=== PATIENT | male | born 1940 | race Caucasian/White ===

== ENCOUNTER 2019-09-05 09:05 | Day surgery (SDC) | payer OTHER, MEDICARE ==
[2019-09-02 12:09] LABS: Basophils % 0.4 % (0-1.3); Hematocrit 37.7 % (39.6-49.0); Lymphocytes % 16.2 % (15.3-44.8); MPV 7.5 fL (7.6-11.3); RBC Red Blood Cell Count 4.23 M/uL (4.33-5.43)
[2019-09-02 12:15] LABS: Protime INR 1.14
[2019-09-02 12:27] LABS: Potassium 4.6 mmol/L (3.5-5.1)
--- NOTE | 2019-09-02 12:38 | RAD REPORT ---
EXAM DESCRIPTION: RAD - Chest Pa And Lat (2 Views) - 09/02/2019 12:28 pm CLINICAL HISTORY: pre op, pending stent placement COMPARISON: July 2012 TECHNIQUE: Frontal and lateral views of the chest were obtained. FINDINGS: The lungs are clear. Central right lung field is not well visualized due to technique. No abnormality suspected. No failure or volume overload. Heart size is normal and central vasculature is within normal limits. No pleural effusion or pneumo thorax seen. No acute bony finding noted. No aortic abnormality. IMPRESSION: No acute cardiopulmonary process.
--- OUTSIDE RECORDS SUMMARY | 2019-09-04 10:26 | XMS REPORT | Continuity of Care Document ---
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, systemic N euro arterial (disorder) Hyperlipidemia Active Problem 10/25/2018 Misc her (disorder) Neuro Hypothyroidism Active Problem 10/25/2018 Misc her (disorder) Neuro Medications Medication Details Route Status Patient Ordering Order Source Instructions Provider Date Levetiracetam = 1 tab, Active Mischer 500 MG Oral PO, BID, # 019 Neuro Tablet 180 tab, Refill(s) 1, Pharmacy: [facility] Allergies, Adverse Reactions, Alerts Substance Category Reaction Severity Reaction Status Date Comments S ource type Reported traMADol Assertion Drug Active Misch er allergy Neuro Immunizations No Data Provided for This Section Results No Data Provided for This Section Pathology Reports No Data Provided for This Section Diagnostic Reports No Data Provided for This Section Consultation Notes No Data Provided for This Section Discharge Summaries No Data Provided for This Section History and Physicals No Data Provided for This Section Vital Signs No Data Provided for This Section Encounters Location Location Encounter Encounter Reason Attending ADM [facility] Source Details Type Number For Provider Date Date Visit Outpatient [id number] LUZ 10/23 Active [facility] Outside [id number] 03/01 03/03 [facility] Medical /2018 [facility] [place] [facility] Outpatient [id number] LUZ 10/23 Active [facility] [place] Outpatient [id number] Luz 10/23 Active [facility] [place] [facility] Ambulatory [id number] Luz 10/23 10/23 [facility] Neurology Pre-Reg [place] /2018 [facility] [place] [facility] Ambulatory [id number] Luz 10/23 10/23 [facility] Neurology Pre-Reg [place] [place] Outpatient [id number] Luz 10/24 Active [facility] [place] Outpatient [id number] Luz 10/22 Active [facility] [place] Outpatient [id number] [place] 10/22 [facility] Procedures No Data Provided for This Section Assessment and Plan No Data Provided for This Section Plan of Care No Data Provided for This Section Social History Social History Date Source Social History [facility] Smoking Status Never smoker; Exposure to Tobacco Smoke None; Cigarette Smoking Last 365 Days No; Reg Smoking Cessation Counseling No entered on: 10/24/18 Family History No Data Provided for This Section Advance Directives No Data Provided for This Section Functional Status No Data Provided for This Section
--- OUTSIDE RECORDS SUMMARY | 2019-09-04 10:27 | XMS REPORT | Summary of Care ---
:1940 Author Organization [facility] - Health Address [address] [place] [address] Care Team Providers Name Role Phone Faustina Berrios Primary Care Provider Encounter Details Date Type Department Care Team Description 07/31/2019 Orders Only [facility] Doctor Unassigned, No 301 [facility] [place] [address] [address] [place] [address] Allergies Active Allergy Reactions Severity Noted Date Comments Penicillins Rash 05/28/2009 Sulfa (Sulfonamide Antibiotics) Rash 0 documented as of this encounter (statuses as of 08/18/2019) Medications Medication Sig Dispensed Refills Start Date End Date Status EFFEXOR XR 150 MG once daily 0 A ctive ORAL CP24 PLAVIX 75 MG ORAL TAB once daily 0 Active GLIPIZIDE 10 MG ORAL once daily 0 Active TR24 ZYRTEC 10 MG ORAL TAB once daily 0 Active SIMVASTATIN 40 MG once daily 0 A ctive ORAL TAB ALLOPURINOL 300 MG once daily 0 Active ORAL TAB NEXIUM 40 MG ORAL once daily 0 A ctive CPDR WARFARIN 6 MG ORAL as directed w/ 0 Active TAB warfarin 1mg WARFARIN 1 MG ORAL as directed w/ 0 Active TAB warfarin 6mg RAMIPRIL 5 MG ORAL once daily 0 Active TAB METFORMIN 850 MG ORAL 2 tabs in AM, 1 0 Active TAB tab in PM CARVEDILOL 3.125 MG 1 tab twice daily 0 Active ORAL TAB GABAPENTIN 300 MG 2 tabs in AM, 4 0 Active ORAL TAB tabs in PM FLUTICASONE NASAL once daily 0 A ctive NIACIN 500 MG ORAL 2 tabs in evening 0 Active TAB CENTRUM SILVER ORAL once daily 0 Active TRAMADOL 50 MG ORAL 2 tabs as needed 0 Active TAB for pain in feet LANTUS 100 UNIT/ML SC 27 units SQ at 0 Active SOLN bedtime DULoxetine (CYMBALTA) Take 1 Cap by 90 0 10/28/2009 Active 30 mg capsule mouth daily. mirtazapine 15 mg Take 15 mg by 0 Active tablet mouth at bedtime. oxybutynin XL 5 mg 24 Take 1 tablet by 90 tablet 3 04/24/2019 Active hr tabletIndications: mouth daily. BPH with obstruction/lower urinary tract symptoms tamsulosin 0.4 mg 24 Take 1 capsule by 90 capsule 3 04/28/2019 Active hr mouth at bedtime. capsuleIndications: BPH with obstruction/lower urinary tract symptoms documented as of this encounter (statuses as of 08/18/2019) Active Problems Problem Noted Date Diabetic polyneuropathy 07/30/2009 Overview: ICD10 Diagnosis Term Manual Winder Utility Type II or unspecified type diabetes mellitus with giovanni rological 07/26/2009 manifestations, not stated as uncontrolled(250.60) documented as of this encounter (statuses as of 08/18/2019) Social History Tobacco Use Types Packs/Day Years Used Date Never Smoker Alcohol Use Drinks/Week oz/Week Comments No Sex Assigned at Date Recorded Not on file Job Start Date Occupation Industry Not on file Not on file Not on file Travel History Travel Start Travel End No recent travel history available. documented as of this encounter Last Filed Vital Signs Not on filedocumented in this encounter Plan of Treatment Date Type Specialty Care Team Description 08/28/2019 Office Visit Pulmonary Disease Adolfo Harris DO [address] [place] [address] 09/08/2019 Office Visit Urology Eliezer Peres MD [address] [place] [address]. [place], [place] [phone] Health Maintenance Due Date Last Done Comments HgA1C 1941 CREATININE (SERUM) 05/18/1951 EYE EXAM 05/18/1951 LDL-C 05/18/1951 URINE MICROALBUMIN 05/18/1951 DTaP,Tdap,and Td Vaccines (1 - Tdap) 1952 FOOT EXAM 05/18/1959 Zoster Recombinant Vaccine (SHINGRIX) 05/18/1991 (1 of 2) Medicare Wellness Visit 2006 PNEUMOCOCCAL VACCINES 65+ (1 of 2 - 2006 PCV13) Depression Screening 04/21/2020 04/21/2019 INFLUENZA VACCINE Completed 01/27/2019, 12/14/2016, 01/11/2016 documented as of this encounter Procedures Procedure Name Priority Date/Time Associated Diagnosis Comme nts REFERRAL- Routine 07/31/2019 12:01 AM CDT REQUEST/RESPONSE documented in this encounter Results Not on filedocumented in this encounter Insurance Payer Benefit Plan / Subscriber ID Effective Phone Address T ype Group Dates MEDICARE MEDICARE PART xxxxxxxxxxx 2006-Pre [phone] [address] [employer] edicare A & B sent [phone] RADHA LINCOLN [id number] [facility] [id number] 2018-Pre [address] [facility] sent [id number] Supplement MEDICARE [place] SUPPLEMENT RADHA MALLORY [id number] documented as of this encounter
--- OUTSIDE RECORDS SUMMARY | 2019-09-04 10:27 | XMS REPORT | Summary of Care ---
:1940 Author Organization [facility] Address [address] [place] [address] Care Team Providers Name Role Phone Faustina Berrios Primary Care Provider [phone] Reason for Visit Reason Comments Lower Urinary Tract Symptoms Encounter Details Date Type Department Care Team Description 05/19/2019 Telemedicine Visit [facility] Yvonne Peres MD BPH with Urology- [address] obstruction/lower [address] [place] [address] [place], [place] symptoms (Primary [phone] Dx) [place], [place] [phone] [address] [phone] Allergies Active Allergy Reactions Severity Noted Date Comments Penicillins Rash 05/28/2009 Sulfa (Sulfonamide Antibiotics) Rash 0 documented as of this encounter (statuses as of 07/07/2019) Medications Medication Sig Dispensed Refills Start Date [...] as of this encounter (statuses as of 07/07/2019) Active Problems Problem Noted Date Diabetic polyneuropathy 07/30/2009 Overview: ICD10 Diagnosis Term Soil Sampler Utility Type II or unspecified type diabetes mellitus with giovanni rological 07/26/2009 manifestations, not stated as uncontrolled(250.60) documented as of this encounter (statuses as of 07/07/2019) Social History Tobacco Use Types Packs/Day Years [...] Signs Not on filedocumented in this encounter Progress Notes Eliezer Peres MD - 05/19/2019 1:00 PM CDT TELEHEALTH NOTE Verbal consent obtained from Patient: Desmond Jean-Baptiste for telehealth services provided below. Communication with patient was conducted via Telephone. Location of Patient: Home Location of Provider: Clinic Date of Service: 05/15/2019 Referred by: HEBER Landin Chief Complaint: I was asked to give my opinion regarding Desmond Jean-Baptiste is a 79 year old male who presents with LUTS History of Present Illness 05/19/2019: Desmond Jean-Baptiste is a 79 year old male on Flomax and Ditropan with persistent nocturia 6 , withno day time frequency. Patient and reported maximizing life style changes and reducing oral fluid intake with no improvement. No recent UTI or hematuria. He reported no dry cough, headache, SOB or fever. PSAs reviewed: No results found for: PSA 04/21/2019: Desmond Jean-Baptiste 78 year old male for 6 month follow up of frequency and nocturia. Here with . He is taking Flomax symptoms have improved during the day, but gets up 4-5 times a night. He hasdecreased caffeine intake, and denies constipation. . thinks he gets up frequently to avoid wetting the bed. On Tamsulosin and Ditropan PVR : 5 ML Histories Past Medical History: Diagnosis Date CAD (coronary artery disease) 2004 s/p stent placement X4 Depression Heart failure 2004 Stroke 2004 Type II or unspecified type diabetes mellitus without mention of complication, uncontrolled History reviewed. No pertinent surgical history. Family History Problem Relation Age of Onset Hypertension Father Heart Mother Heart Brother Hypertension Daughter Social History Socioeconomic History Marital status: Spouse name: Not on file Number of children: Not on file Years of education: Not on file Highest education level: Not on file Occupational History Occupation: Retired Social Needs Financial resource strain: Not on file Food insecurity: Worry: Not on file Inability: Not on file Transportation needs: Medical: Not on file Non-medical: Not on file Tobacco Use Smoking status: Never Smoker Substance and Sexual Activity Alcohol use: No Drug use: No Sexual activity: Not on file Lifestyle Physical activity: Days per week: Not on file Minutes per session: Not on file Stress: Not on file Relationships Social connections: Talks on phone: Not on file Gets together: Not on file Attends islam service: Not on file Active member of club or organization: Not on file Attends meetings of clubs or organizations: Not on file Relationship status: Not on file Intimate partner violence: Fear of current or ex partner: Not on file Emotionally abused: Not on file Physically abused: Not on file Forced sexual activity: Not on file Other Topics Concern Service Not Asked Blood Transfusions Not Asked Caffeine Concern Not Asked Occupational Exposure Not Asked Hobby Hazards Not Asked Sleep Concern Yes Comment: due to feet pain Stress Concern Yes Weight Concern Not Asked Special Diet Not Asked Back Care Not Asked Exercise Not Asked Bike Helmet Not Asked Seat Belt Not Asked Self-Exams Not Asked Social History Narrative Not on file Allergies Allergies Allergen Reactions Pcn [Penicillins] Rash Sulfa (Sulfonamide Antibiotics) Rash Review of Systems Constitutional: negative Eyes: negative Ears, nose, mouth, throat: negative Cardiovascular: negative Respiratory: negative Gastrointestinal: negative Genitourinary: (+) per HPI Musculoskeletal: negative Integumentary: negative Neurological: negative Psychiatric: negative Endocrine: negative Hematologic/Lymphatic: negative Allergic/Immunologic: negative, allergies listed above Physical Examination There were no vitals taken for this visit. Constitutional: Alert and in no distress Resp: Breathing comfortably Neuro: Answers questions appropriately Psych: Affect normal Laboratory Per HPI Radiology No final results containing an impression from the past 30 days were found. Assessment Desmond Jean-Baptiste is a 79 year old male with: 1. BPH/LUTS 2. Nocturia : probably 2/2 to inability of kidney to concentrate urine with aging, increased renal blood flow in recumbent position and an element of voiding dysfunction. No further medical management at this point, as DDAVP logan result in serious electrolyte imbalances and requires close follow up , which is not the patient best interest at the time of COVID-19 outbreak. Patient and voiced understanding Plan - stop Ditropan - C/n flomax - TeleHealth visit 6 months After visit summary (AVS ) documentation will be available through [employer] for this encounter. A total of 15 minutes spent on the telephone on the telephone with the patient. Eliezer Peres MD documented in this encounter Plan of Treatment Date Type Specialty Care Team Description 08/25/2019 Telemedicine Visit Urology Yvonne Peres MD [address] [place] [address]. [place], [place] [phone] Health Maintenance Due Date Last Done Comments HgA1C 1941 CREATININE (SERUM) 05/18/1951 EYE EXAM 05/18/1951 LDL-C 05/18/1951 URINE MICROALBUMIN 05/18/1951 DTaP,Tdap,and Td Vaccines (1 - Tdap) 1952 FOOT EXAM 05/18/1959 Zoster Recombinant Vaccine (SHINGRIX) 05/18/1991 (1 of 2) Medicare Wellness Visit 2006 PNEUMOCOCCAL VACCINES 65+ (1 of 2 - 2006 PCV13) INFLUENZA VACCINE Completed 01/27/2019, 12/14/2016, 01/11/2016 documented as of this encounter Results Not on filedocumented in this encounter Visit Diagnoses Diagnosis BPH with obstruction/lower urinary tract symptoms - Primary Hypertrophy of prostate with urinary obs truction and other lower urinary tract symptoms (LUTS) documented in this encounter Insurance Payer Benefit Plan / Subscriber ID Effective Phone Address T ype Group Dates MEDICARE MEDICARE PART xxxxxxxxxxx 2006-Pre [phone] [address] [facility] [facility] [facility] [phone] RADHA LINCOLN [address] [facility] [id number] 2018-Pre [address] [facility] sent [id number] Supplement MEDICARE [place] SUPPLEMENT RADHA MALLORY [id number] Guarantor Name Account Type Relation to Date of Phone Bill ing Patient Address Desmond Jean-Baptiste Personal/Family Self 1940 [id number] (Home) [place] MÉNDEZ [phone] (Work) documented as of this encounter
--- OUTSIDE RECORDS SUMMARY | 2019-09-04 10:27 | XMS REPORT | Summary of Care ---
:1940 Author Organization [facility] - Health Address [address] [place] [address] Care Team Providers Name Role Phone Faustina Berrios Primary Care Provider [phone] Encounter Details Date Type Department Care Team Description 08/28/2019 Orders Only [facility] Doctor Unassigned, No 301 [facility] [place] [address] [address] [place] [address] Allergies Active Allergy Reactions Severity Noted Date Comments Penicillins Rash 05/28/2009 Sulfa (Sulfonamide Antibiotics) Rash 0 documented as of this encounter (statuses as of 08/28/2019) Medications Medication Sig Dispensed Refills Start Date [...] as of this encounter (statuses as of 08/28/2019) Active Problems Problem Noted Date Diabetic polyneuropathy 07/30/2009 Overview: ICD10 Diagnosis Term Safety Teacher Utility Type II or unspecified type diabetes mellitus with giovanni rological 07/26/2009 manifestations, not stated as uncontrolled(250.60) documented as of this encounter (statuses as of 08/28/2019) Social History Tobacco Use Types Packs/Day Years [...] Visit Pulmonary Disease Adolfo Harris DO [address] [place] [address] 09/08/2019 Office Visit Urology Eliezer Peres MD [address] [place] [address]. [place], [place] [phone] Health Maintenance Due Date Last Done Comments HgA1C 1942 CREATININE (SERUM) 05/18/1951 EYE EXAM 05/18/1951 LDL-C 05/18/1951 URINE MICROALBUMIN 05/18/1951 DTaP,Tdap,and Td Vaccines (1 - Tdap) 1952 FOOT EXAM 05/18/1959 Zoster Recombinant Vaccine (SHINGRIX) 05/18/1991 (1 of 2) Medicare Wellness Visit 2006 PNEUMOCOCCAL VACCINES 65+ (1 of 2 - 2006 PCV13) INFLUENZA VACCINE (#1) 2019 01/27/2019, 12/14/2016, 01/11/2016 Depression Screening 04/21/2020 04/21/2019 documented as of this encounter Procedures Procedure Name Priority Date/Time Associated Diagnosis Comme nts CONSENT/REFUSAL FOR Routine 08/28/2019 12:44 PM CDT DIAGNOSIS AND TREATMENT documented in this encounter Results Not on filedocumented in this encounter Insurance Payer Benefit Plan / Subscriber ID Effective Phone Address T ype Group Dates MEDICARE MEDICARE PART xxxxxxxxxxx 2006-Pre [phone] [address] edicare A & B sent [id number] RADHA LINCOLN [id number] [facility] [id number] 2018-Pre [address] [facility] sent [id number] Supplement MEDICARE [place] SUPPLEMENT RADHA MALLORY [id number] documented as of this encounter
--- OUTSIDE RECORDS SUMMARY | 2019-09-04 10:27 | XMS REPORT | Continuity of Care Document ---
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) Active Problem 10/25/2018 [facility] Diabetes Problem Active 2018-10-25 Mem oria mellitus 22:25:41 l type 2 Diabetes Andriy n (disorder) mellitus type 2 (disorder) Active Problem 10/25/2018 [facility] Hypertensi Problem Active 2018-10-25 M emoria ve 22:25:41 l disorder, [place] systemic Hypertensi arterial ve (disorder) disorder, systemic arterial (disorder) Active Problem 10/25/2018 [facility] Hyperlipid Problem Active 2018-10-25 M emoria emia 22:25:41 l (disorder) Andriy n Hyperlipid emia (disorder) Active Problem 10/25/2018 [facility] Hypothyroi Problem Active 2018-10-25 M emoria dism 22:25:41 l (disorder) Andriy n Hypothyroi dism (disorder) Active Problem 10/25/2018 [facility] Allergies, Adverse Reactions, Alerts Allergy Allergy Status Severity Reaction(s) Onset Inactive Treating Comm ents Source Name Type Date Date Clinician traMADol traMADol Active Kyle Owen Social History Smoking Status Start Date Stop Date Source Social History Lesa Owen Medications Ordered Filled Start Stop Current Ordering Indication Dosage Frequency Signature Comments Components Source Medication Medication Date Date Medication? Clinician (SIG) Name Name Levetiracet 2019- Yes = 1 tab, Me traore am 500 MG 2-17 PO, BID, # l Oral Tablet 20:02: 180 tab, Nicholas rmann 58 Refill(s) 1, Pharmacy: [facility] Procedures This patient has no known procedures. Encounters Start End Encounter Admission Attending Care Care Encounter Source Date/Time Date/Time Type Type Clinicians Facility Department ID 2019-08-28 2019-08-28 Office SEKOU Harris [id number] 12:50:55 13:10:55 Visit Adolfo Bolivar [id number] Hollie [id number] [facility] [id number] nal 085 [facility] 2018-10-23 2018-10-23 Outpatient EVELYNE Keys GOKULSCHER [id number] 16:00:00 16:00:00 Jarad 02 [facility] 2018-10-23 2018-10-23 Outpatient ANKITA KeysSCHFAUZIA GOKULSCHER [id number] 14:00:00 14:00:00 Jarad Alli 2018-03-01 2018-03-02 [id number] 13:31:00 23:59:59 01 Results This patient has no known results.
--- OUTSIDE RECORDS SUMMARY | 2019-09-04 10:28 | XMS REPORT | Summary of Care ---
:1940 Author Organization [facility] Address [address] [place] [address] Care Team Providers Name Role Phone Faustina Berrios Primary Care Provider Reason for Visit Reason Comments New Patient DYSPNEA (Routine) Status Reason Specialty Diagnoses / Referred By Referred To Procedures Contact Contact Closed Pulmonary Disease Diagnoses Hypoxemia Agustina Procedures CONSULT/REFERRAL PULMONARY , Faustina [facility] [place] [address] Encounter Details Date Type Department Care Team Description 08/28/2019 Office Visit [facility] ADC Adolfo Harris DO Dyspnea on exertion Pulmonary Clinic 2660 [facility] (Primary Dx) [address] [place] [address] [phone] Allergies Active Allergy Reactions Severity Noted Date Comments Penicillins Rash 05/28/2009 Sulfa (Sulfonamide Antibiotics) Rash 0 documented as of this encounter (statuses as of 08/28/2019) Medications Medication Sig Dispensed Refills Start Date End Date Status EFFEXOR XR 150 MG once daily 0 A ctive ORAL CP24 GLIPIZIDE 10 MG once daily 0 Act radha ORAL TR24 ZYRTEC 10 MG ORAL once daily 0 A ctive TAB SIMVASTATIN 40 MG once daily 0 A ctive ORAL TAB ALLOPURINOL 300 MG once daily 0 Active ORAL TAB NEXIUM 40 MG ORAL once daily 0 A ctive CPDR RAMIPRIL 5 MG ORAL once daily 0 Active TAB metFORMIN 1,000 mg Take 1,000 mg 0 Active tablet by mouth. CARVEDILOL 3.125 MG 1 tab twice 0 Active ORAL TAB daily GABAPENTIN 300 MG 2 tabs in AM, 0 Active ORAL TAB 4 tabs in PM FLUTICASONE NASAL once daily 0 A ctive NIACIN 500 MG ORAL 2 tabs in 0 A ctive TAB evening CENTRUM SILVER ORAL once daily 0 Active TRAMADOL 50 MG ORAL 2 tabs as 0 Active TAB needed for pain in feet LANTUS 100 UNIT/ML 27 units SQ at 0 Active SC SOLN bedtime DULoxetine Take 1 Cap by 90 0 10/28/2009 Acti ve (CYMBALTA) 30 mg mouth daily. capsule mirtazapine 15 mg Take 15 mg by 0 Active tablet mouth at bedtime. oxybutynin XL 5 mg Take 1 tablet 90 tablet 3 04/24/2019 Active 24 hr by mouth tabletIndications: daily. BPH with obstruction/lower urinary tract symptoms tamsulosin 0.4 mg Take 1 capsule 90 capsule 3 04/28/2019 Active 24 hr by mouth at capsuleIndications: bedtime. BPH with obstruction/lower urinary tract symptoms levothyroxine 25 Take 25 mcg by 0 Active mcg tablet mouth every morning. pramipexole 1.5 mg 2 tablets. 0 09/23/2013 Active tablet venlafaxine XR 150 0 06/22/2019 Active mg 24 hr capsule XARELTO 20 mg 0 08/02/2019 Activ e tablet PLAVIX 75 MG ORAL once daily 0 D iscontinued TAB 0 WARFARIN 6 MG ORAL as directed w/ 0 Discontinued TAB warfarin 1mg 0 WARFARIN 1 MG ORAL as directed w/ 0 Discontinued TAB warfarin 6mg 0 documented as of this encounter (statuses as of 08/28/2019) Active Problems Problem Noted Date Diabetic polyneuropathy 07/30/2009 Overview: ICD10 Diagnosis Term Cigar Patcher Utility Type II or unspecified type diabetes mellitus with giovanni rological 07/26/2009 manifestations, not stated as uncontrolled(250.60) documented as of this encounter (statuses as of 08/28/2019) Social History Tobacco Use Types Packs/Day Years Used Date Never Smoker Smokeless Tobacco: Never Used Alcohol Use Drinks/Week oz/Week Comments No Sex Assigned at Date Recorded Not on file Job Start Date Occupation Industry Not on file Not on file Not on file Travel History Travel Start Travel End No recent travel history available. COVID-19 Exposure Response Date Recorded In the last month, have you been in contact with No / Unsure 08/28/2019 1:15 PM CDT someone who was confirmed or suspected to have Coronavirus / COVID-19? documented as of this encounter Last Filed Vital Signs Vital Sign Reading Time Taken Comments Blood Pressure 128/71 08/28/2019 1:16 PM CDT Pulse 70 08/28/2019 1:16 PM CDT Temperature - - Respiratory Rate 18 08/28/2019 1:16 PM CDT Oxygen Saturation 98% 08/28/2019 1:16 PM CDT Inhaled Oxygen Concentration - - Weight 103.4 kg (228 lb) 08/28/2019 1:16 PM CDT Height 177.8 cm (5' 10") 08/28/2019 1:16 PM CDT Body Mass Index 32.71 08/28/2019 1:16 PM CDT documented in this encounter Progress Notes Adolfo Harris, - 08/28/2019 3:40 PM CDT [facility] Inter[facility] Pul[facility] Chief Complaint: Shortness of breath History of Present Illness: Desmond Jean-Baptiste is a 79 year old male here for shortness of breath with exertion, can walk across the room and get short of breath. No associated chest pain. Does have leg swelling. No non-exertional dyspnea. Symptoms improved with rest. Of note, recently had positive stress test and cardiac catheterization is planned. Past Medical History: has a past medical history of CAD (coronary artery disease) (2004), Depression, Heart failure (2004), Stroke (2004), and Type II or unspecified type diabetes mellitus without mention of complication, uncontrolled. Past Surgical History: has no past surgical history on file. Family History: family history includes Heart in his brother and mother; Hypertension in his daughter and father. Social History: reports that he has never smoked. He has never used smokeless tobacco. He reports that he does not drink alcohol or use drugs. Review of Systems: Review of Systems Constitutional: Negative. HENT: Negative. Eyes: Negative. Respiratory: Positive for shortness of breath. Cardiovascular: Positive for leg swelling. Gastrointestinal: Negative. Genitourinary: Negative. Musculoskeletal: Negative. Skin: Negative. Neurological: Negative. Psychiatric/Behavioral: Negative. Objective: BP 128/71 (BP Location: Left arm, Patient Position: Sitting, BP CUFF SIZE: Adult Large) | Pulse 70| Resp 18 | Ht 5' 10" (1.778 m) | Wt 228 lb (103.4 kg) | SpO2 98% | BMI 32.71 kg/m Physical Exam Constitutional: He is oriented to person, place, and time. He appears well- developed and well-nourished. HENT: Head: Normocephalic and atraumatic. Eyes: Conjunctivae and EOM are normal. Neck: Normal range of motion. Neck supple. Cardiovascular: Normal rate and regular rhythm. Pulmonary/Chest: Effort normal and breath sounds normal. Abdominal: Soft. Bowel sounds are normal. Musculoskeletal: Normal range of motion. He exhibits edema. Neurological: He is alert and oriented to person, place, and time. Skin: Skin is warm and dry. Psychiatric: He has a normal mood and affect. His behavior is normal. Judgment and thought content normal. Labs/Studies: Assessment: ICD-10-CM ICD-9-CM 1. Dyspnea on exertion R06.09 786.09 No strong risk factors to suggest pulmonary cause - does have hx of cigar smoking one per day Likely cardiac in nature especially given positive stress test, as well as signs of volume overload Plan: Would re-evaluate patient after catheterization and stent placement and optimization of volume status If symptoms persist will consider pulmonary function testing Follow up 6 weeks documented in this encounter Plan of Treatment Date Type Specialty Care Team Description 09/08/2019 Office Visit Urology Eliezer Peres MD [address] [place], [place] [address]. [place], [place] [phone] Health Maintenance Due Date [...] 04/21/2020 04/21/2019 documented as of this encounter Results Not on filedocumented in this encounter Visit Diagnoses Diagnosis Dyspnea on exertion - Primary Other dyspnea and respiratory abnormalit y documented in this encounter Insurance Payer Benefit Plan / Subscriber ID Effective Phone Address T ype Group Dates MEDICARE MEDICARE PART xxxxxxxxxxx 2006-Pre [phone] [address] edicare A & B sent [id number] RADHA LINCOLN [phone] [facility] [id number] 2018-Pre [address] [facility] sent [id number] Supplement MEDICARE [place] SUPPLEMENT RADHA MALLORY [id number] Guarantor Name Account Type Relation to Date of Phone Bill ing Patient Address Desmond Jean-Baptiste Personal/Family Self 1940 [id number] (Home) [place] [phone] (Work) documented as of this encounter
--- OUTSIDE RECORDS SUMMARY | 2019-09-04 10:28 | XMS REPORT | Summary of Care ---
:1940 Author Organization [facility] Address [address] [place] [address] Care Team Providers Name Role Phone Faustina Berrios Primary Care Provider Reason for Visit Reason Comments New Patient DYSPNEA (Routine) Status Reason Specialty Diagnoses / Referred By Referred To Procedures Contact Contact Closed Pulmonary Disease Diagnoses Hypoxemia Agustina Procedures CONSULT/REFERRAL PULMONARY , Faustina [facility] [place] [address] Encounter Details Date Type Department Care Team Description 08/28/2019 Office Visit [facility] ADC Adolfo Harris DO Dyspnea on exertion Pulmonary Clinic 2660 [facility] (Primary Dx) [address] [place] [address] [phone] Allergies Active Allergy Reactions Severity Noted Date [...] Diabetic polyneuropathy 07/30/2009 Overview: ICD10 Diagnosis Term Broadcasting Equipment Mechanic Utility Type II or unspecified type diabetes [...] Adolfo Harris, - 08/28/2019 3:40 PM CDT [facility] Interventional Pulmonology Clinic Chief Complaint: Shortness of [...] 09/08/2019 Office Visit Urology Eliezer Peres MD [address] [place], [place] [address]d. [place], [place] [phone] Health Maintenance Due Date [...] M edicare A & B sent [id number] RADHA LINCOLN [address] [facility] [id number] 2018-Pre [address] [facility] sent [id number] Supplement MEDICARE [place] SUPPLEMENT RADHA MALLORY [id number] Guarantor Name Account Type Relation to Date of Phone Bill ing Patient Address Desmond Jean-Baptiste Personal/Family Self 1940 [id number] (Home) [place] [phone] (Work) documented as of this encounter
[~2019-09-05 09:05] MED LIST: NA CHLORIDE 0.9% 0 ML ONE
--- OUTSIDE RECORDS SUMMARY | 2019-09-05 09:07 | XMS REPORT | Continuity of Care Document ---
:1940 Author Organization [facility] Care Team Providers Name Role Phone [facility] Unavailable Un available Problems Problem Status Onset [...] Neuro Tablet 180 tab, Refill(s) 1, Pharmacy: [facility] Allergies, Adverse Reactions, Alerts Substance [...] Location Location Encounter Encounter Reason Attending ADM [facility] Source Details Type Number For Provider Date Date Visit Outpatient [id number] LUZ 10/23 Active [facility] [place] [facility] Outside [id number] 03/01 03/03 [facility] Medical /2018 [facility] [place] [facility] Outpatient [id number] LUZ 10/23 Active [facility] [place] Outpatient [id number] Luz 10/23 Active [facility] [place] [facility]NA Ambulatory [id number] Luz 10/23 10/23 [facility] Pre-Reg [place] /2018 Neuro [place] MNA Ambulatory [id number] Luz 10/23 10/23 [facility] Pre-Reg [place] [facility] [place] Outpatient [id number] Luz 10/24 Active [facility] [place] Outpatient [id number] Luz 10/22 Active [facility] [place] Outpatient [id number] [place] 10/22 [facility] [place] Procedures No Data Provided for This Section Assessment and Plan No Data Provided for This Section Plan of Care No Data Provided for This Section Social History Social History Date Source Social History TypeResponse 10/24/2018 [facility] Smoking Status Never smoker; Exposure to Tobacco Smoke None; Cigarette Smoking Last 365 Days No; Reg Smoking Cessation Counseling No entered on: 10/24/18 Family History No Data Provided for This Section Advance Directives No Data Provided for This Section Functional Status No Data Provided for This Section
--- OUTSIDE RECORDS SUMMARY | 2019-09-05 09:08 | XMS REPORT | Continuity of Care Document ---
:[address] [facility] t Address [address] [place] [address] Care Team Providers Name Role Phone Harris Attending Clinician Alli Keys Attending Clinician Problems Condition Condition Condition Status [...] 2018-10-25 M emoria ve 22:25:41 l disorder, [place] systemic Hypertensi arterial ve (disorder) disorder, systemic [...] Start Date Stop Date Source Social History [facility] [place] Medications Ordered Filled Start Stop Current Ordering Indication Dosage Frequency Signature Comments Components Source Medication Medication Date Date Medication? Clinician (SIG) Name Name Levetiracet 2018- Yes = 1 tab, Me traore am 500 MG 2-17 PO, BID, # l Oral Tablet 20:02: 180 tab, Nicholas peoples 58 Refill(s) 1, Pharmacy: [facility] Procedures This patient has no known procedures. Encounters Start End Encounter Admission Attending Care Care Encounter Source Date/Time Date/Time Type Type Clinicians Facility Department ID 2019-08-28 2019-08-28 Office SEKOU Harris [id number] 12:50:55 13:10:55 Visit Adolfo Bolivar [id number] Hollie [id number] [place] [id number] [facility] 2018-10-23 2018-10-23 Outpatient EVELYNE Keys GOKULSCHFAUZIA [id number] 16:00:00 16:00:00 Jarad 02 [facility] 2018-10-23 2018-10-23 Outpatient ANKITA KeysSCHFAUZIA MISCHER [id number] 14:00:00 14:00:00 Jarad Alli 2018-03-01 2018-03-02 [id number] 13:31:00 23:59:59 01 Results This patient has no known results.
[2019-09-05] MEDS ORDERED: NICARDIPINE HCL 25 MG/10 ML IV ONE (09:25)
[2019-09-05] MEDS ORDERED: LIDOCAINE 1% 20 ML MDV ONE (09:25)
[2019-09-05] MEDS ORDERED: NITROGLYCERIN 100 MCG/ML SYR (for cath lab use only) IV ONE (09:25)
[2019-09-05] MEDS ORDERED: HEPA 1000U/500MLS 2,000 UNIT/1,000 ML BAG IV ONE (09:25)
[2019-09-05] MEDS ORDERED: HEPARIN 5000 UNIT/ML 1 ML VIAL ONE (09:26)
[2019-09-05] MEDS ORDERED: ATROPINE SULF 1 MG/10 ML SYR IV ONE (09:26)
[2019-09-05] MEDS ORDERED: NA CHLORIDE 0.9% 500 ML ONE (09:46)
[2019-09-05] MEDS ORDERED: MIDAZOLAM HCL 2 MG/2 ML INJ ONE (10:03)
[2019-09-05] MEDS ORDERED: FENTANYL CITR 100 MCG/2 ML ONE (10:04)
[2019-09-05] MEDS ORDERED: HEPARIN 10,000 UNIT/10 ML VIAL IV ONE (10:53)
[2019-09-05] MEDS ORDERED: CLOPIDOGREL 75 MG TABLET ONE (11:10)
[2019-09-05] MEDS ORDERED: HEPA 1000U/500MLS 1,000 UNIT/500 ML BAG IV ONE (11:15)
[2019-09-05] MEDS ORDERED: ASPIRIN 325 MG TAB ONE (11:56)
[2019-09-05] MEDS ORDERED: MAGNES/ALUMIN/SIMET 30ML UCUP PO ONE (12:28)
[2019-09-05] MEDS ORDERED: MAGNES/ALUMIN/SIMET 30ML UCUP ONE (12:54)
[2019-09-05] MEDS ORDERED: NA CHLORIDE 0.9% 1,000 ML IV SCH (13:00)
[2019-09-05 14:16] VITALS: O2SAT 99
[2019-09-05] MEDS ORDERED: D50W 25 GM/50 ML SYRINGE/VIAL IV PRN (15:10)
[2019-09-05] MEDS ORDERED: GLUCAGON 1 MG/VIAL IM PRN (15:10)
[2019-09-05 15:15] VITALS: BMI 32.3
[2019-09-05] MEDS: INSULIN -REGULAR HUMAN 50 UNIT/0.5 ML ML SQ SCH ×2 (16:39→21:00)
--- NOTE | 2019-09-05 16:44 | P.CNS ---
Date of Consult: 09/05/19 Reason for Consult: Medical management Requesting Physician: Isaias Day Chief Complaint: Status post cardiac catheterization History of Present Illness: 79-year-old male was taken in for outpatient heart catheterization c andidate requiring stent placement. For this reason cardiology wishes to observe patient overnight, hospitalist team was consulted for medical management. - Past Medical/Surgical History Diabetic: Yes -: Hypothyroidism -: Coronary Artery Disease -: Prostate Problem -: Paroxysmal AFIB -: Gout -: Diabetes mellitus type 2 -: Parkinson's -: Cataract Sx -: Right knee surgery Psychosocial/ Personal History: Patient lives with his - Family History Mother Medical History: Heart disease Father Medical History: Heart disease - Social History Smoking Status: Former smoker Alcohol use: No CD- Drugs: No Caffeine use: Yes Place of Residence: Home <Miugel Mendoza - Last Filed: 09/05/19 16:37> Home medications list reviewed: Yes <Chester Sharma - Last Filed: 09/05/19 18:33> Allergies Penicillins Allergy (Verified 09/02/19 11:34) Hives/Rash Sulfa (Sulfonamide Antibiotics) Allergy (Verified 09/02/19 13:29) Hives/Rash diphenhydramine [From Benadryl] Adverse Reaction (Verified 09/02/19 13:29) agitation Home Medications: Allopurinol 100 mg PO DAILY 09/05/19 Carbidopa/Levodopa [Rytary ER 61.25 mg-245 mg Cap] 1 each PO QID 09/05/19 Cholecalciferol (Vitamin D3) [Vitamin D3] 125 mcg PO DAILY 09/05/19 Esomeprazole Mag Trihydrate [Nexium] 40 mg PO DAILY 09/05/19 Gabapentin 3 tab PO BID 09/05/19 Insulin Glargine Human [Lantus] 32 unit SQ DAILY 6PM 09/05/19 Levothyroxine Sodium 25 mcg PO [id number] 09/05/19 Lipase/Protease/Amylase [Zenpep Dr 40,000 Unit Capsule] 2 cap PO QID 09/05/19 Loratadine [Claritin] 10 mg PO DAILY 09/05/19 Metformin HCl 1,000 mg PO BID 09/05/19 Mirtazapine [Remeron] 15 mg PO BEDTIME 09/05/19 Niacin (Inositol Niacinate) [Niacin Flush Free 500 mg Cap] 1,000 mg PO DAILY 09/05/19 Pramipexole Di-HCl [Mirapex] 1.5 mg PO TID 09/05/19 Rivaroxaban [Xarelto*] 20 mg PO DAILY 09/05/19 Simvastatin 40 mg PO BEDTIME 09/05/19 Tamsulosin [Flomax] 0.4 mg PO BEDTIME 09/05/19 Venlafaxine HCl *Xr* [Effexor XR] 150 mg PO DAILY 09/05/19 Review of Systems General: Unremarkable Eyes: Unremarkable ENT: Unremarkable Respiratory: Unremarkable Cardiovascular: Unremarkable Gastrointestinal: Unremarkable Genitourinary: Unremarkable Musculoskeletal: Unremarkable Integumentary: Unremarkable Neurological: Unremarkable Lymphatics: Unremarkable <Miguel Mendoza - Last Filed: 09/05/19 16:37> Physical Examination Temp Pulse Resp BP Pulse Ox 97.8 F 64 20 118/57 L 09/05/19 12:15 09/05/19 14:15 09/05/19 14:15 09/05/19 14:15 General: Alert, In no apparent distress, Oriented x3 HEENT: Atraumatic, Normocephalic Neck: Supple Respiratory: Clear to auscultation bilaterally, Normal air movement Cardiovascular: No edema, Regular rate/rhythm, Normal S1 S2 Capillary refill: <2 Seconds Gastrointestinal: Normal bowel sounds, Soft and benign Musculoskeletal: No contractures, No erythema, No tenderness Integumentary: No tenderness/swelling, No erythema Neurological: Normal speech, Normal strength at 5/5 x4 extr, Normal tone, Sensation intact <Miguel Mendoza - Last Filed: 09/05/19 16:37> Temp Pulse Resp BP Pulse Ox 96.8 F 65 18 179/81 H 99 09/05/19 16:00 09/05/19 16:00 09/05/19 16:00 09/05/19 16:00 09/05/19 16:00 <Chester Sharma - Last Filed: 09/05/19 18:33> Conclusions/Impression: Assessment Status post cardiac catheterization with stent placement Paroxysmal atrial fibrillation on chronic anticoagulation therapy Diabetes mellitus type 2 on chronic insulin therapy Hypertension Hyperlipidemia Parkinson's Gout Plan Status post cardiac catheterization with stent placement: Continue with cardiology recommendations, Plavix, aspirin, will restart patient's Xarelto tomorrow morning. The patient to remain on telemetry throughout this hospitalization. Anticipate discharge tomorrow morning. Paroxysmal atrial fibrillation on chronic anticoagulation therapy: Will restart patient's Xarelto tomorrow morning. Diabetes mellitus type 2 on chronic insulin therapy: Will provide patient with his basal long-acting insulin in addition to a.c. HS Accu-Cheks sliding scale insulin therapy. Hypertension: Will continue patient's home medications. Hyperlipidemia:Will continue patient's home medications. Parkinson's:Will continue patient's home medications. Gout:Will continue patient's home medications. Critical Care: No Time Spent Managing Pts care (In Minutes): 55 <Miguel Mendoza - Last Filed: 09/05/19 16:37> Conclusions/Impression: Patient seen and examined. Patient was getting out of bed. Patient consoled and put back to bed. Will add Haldol for agitation. Patient with history of Parkinson's underlying dementia. Will monitor closely. Anticipate improvement over the next 24 hr. Anticipate discharge tomorrow. Case discussed in detail with cardiology. <Chester Sharma - Last Filed: 09/05/19 18:33>
[2019-09-05] MEDS ORDERED: ENOXAPARIN 40 MG/0.4 ML SQ SCH (17:00)
[2019-09-05] MEDS ORDERED: CARBIDOPA PO SCH (17:00)
[2019-09-05] MEDS ORDERED: METFORMIN HCL 500 MG TAB PO SCH (17:00)
[2019-09-05] MEDS ORDERED: RIVAROXABAN 20 MG TABLET PO SCH (17:00)
[2019-09-05] MEDS ORDERED: LEVODOPA PO SCH (17:00)
[2019-09-05] MEDS ORDERED: INSULIN GLARGINE 100 UNITS/ML SQ SCH ×2 (18:00)
[2019-09-05] MEDS ORDERED: HALOPERIDOL LACT 5 MG/ML INJ IM PRN (18:08)
[2019-09-05] MEDS: GABAPENTIN 300 MG CAP PO SCH (20:41)
[2019-09-05] MEDS ORDERED: ATORVASTATIN 20 MG TAB PO SCH (21:00)
[2019-09-05] MEDS ORDERED: HOME MED 1 EA UNK (Metformin Hcl [Metformin Hcl] 1,000 MG) PO SCH (21:00)
[2019-09-05] MEDS ORDERED: MIRTAZAPINE 15 MG TAB PO SCH (21:00)
[2019-09-05] MEDS ORDERED: HOME MED 1 EA UNK (Simvastatin [Simvastatin] 40 MG) PO SCH (21:00)
[2019-09-05] MEDS: PRAMIPEXOLE DI HCL 1.5 MG PO SCH (21:00)
[2019-09-05] MEDS ORDERED: TAMSULOSIN 0.4 MG SR CAP PO SCH (21:00)
[2019-09-06] MEDS ORDERED: LEVOTHYROXINE SOD 0.025 MG TAB PO SCH (06:00)
[2019-09-06 06:23] LABS: Absolute Lymphocytes (CBC) 0.8 K/uL (0.7-4.9); Basophils % 0.3 % (0-1.3); Hematocrit 35.2 % (39.6-49.0); Lymphocytes % 14.2 % (15.3-44.8); MPV 7.3 fL (7.6-11.3); RBC Red Blood Cell Count 3.95 M/uL (4.33-5.43)
[2019-09-06 06:39] LABS: Potassium 3.9 mmol/L (3.5-5.1)
[2019-09-06] MEDS ORDERED: PANTOPRAZOLE 40MG TABLET PO SCH (07:30)
[2019-09-06] MEDS: INSULIN -REGULAR HUMAN 50 UNIT/0.5 ML ML SQ SCH ×2 (07:30→11:30)
[2019-09-06] MEDS ORDERED: RIVAROXABAN 20 MG TABLET PO SCH (08:00)
[2019-09-06] MEDS: GABAPENTIN 300 MG CAP PO SCH (08:12)
[2019-09-06] MEDS: PRAMIPEXOLE DI HCL 1.5 MG PO SCH ×2 (08:13→13:04)
[2019-09-06] MEDS ORDERED: HOME MED 1 EA UNK (Esomeprazole Mag Trihydrate [Nexium] 40 MG) PO SCH (09:00)
[2019-09-06] MEDS ORDERED: CLOPIDOGREL 75 MG TABLET PO SCH (09:00)
[2019-09-06] MEDS ORDERED: ASPIRIN 81 MG CHEWABLE TABLET PO SCH (09:00)
[2019-09-06] MEDS ORDERED: ENOXAPARIN 40 MG/0.4 ML SQ SCH (09:00)
[2019-09-06] MEDS ORDERED: allopurinoL 100 MG TAB PO SCH (09:00)
--- NOTE | 2019-09-06 11:23 | P.DS ---
Admission Date: 09/05/19 Discharge Date: 09/06/19 Primary Care Provider: Cardiology-Dr. Day Discharge Condition: GOOD Reason for Admission: Status post cardiac catheterization Consultations: Hospitalist-Dr. Sharma Cardiology-Dr. Day Procedures: Heart catheterization: Severe mid LAD 95% stenosis status post stent, distal LAD 40% stenosis noted, large dominant RCA proximal 30% stenosis, severe RPDA branch with large calcified stenosis status post stent, severe small branch RPDA stenosis Medical problem list: CAD status post heart catheterization showing Severe mid LAD 95% stenosis status post stent, distal LAD 40% stenosis noted, large dominant RCA proximal 30% stenosis, severe RPDA branch with large calcified stenosis status post stent, s evere small branch RPDA stenosis Hypothyroidism BPH Diabetes mellitus type 2 Parkinson's Dementia Paroxysmally atrial fibrillation on chronic anti coagulation therapy Brief History of Present Illness: 79-year-old male was taken in for outpatient heart catheterization candidate requiring stent placement. For this reason cardiology wishes to observe patient overnight Hospital Course: Patient was admitted status post heart catheterization to monitor closely as the patient had 2 stents placed. Cardiology performed heart catheterization showing severe CAD. Heart catheterization-Severe mid LAD 95% stenosis status post stent, distal LAD 40% stenosis noted, large dominant RCA proximal 30% stenosis, severe RPDA. Patient was monitored overnight. Patient has remained stable. Case discussed at length with cardiology. Cardiology desires the patient to continue with aspirin 81 mg daily, Plavix 75 mg daily, Xarelto 20 mg daily, Zocor 20 mg daily, and Niacin daily. Patient will need to monitor for any bleeding as the patient will be on triple therapy. Recommend to recheck lab-CBC in 1 week to monitors progress. Recommend follow up with cardiology within 1 week to follow up this hospitalization and continue his care. Cardiology mentioned that in a month aspirin can be discontinued. Further adjustment in medication will come from cardiology. Patient with diabetes mellitus type 2. This has remained stable. At discharge he will continue with his current medications of Lantus 32 units subcu daily and metformin 1000 mg 1 pill twice daily. Recommend to restart metformin 48 hr from the time that the heart catheterization was done. Patient with underlying Parkinson's suspect dementia. At discharge patient will continue with carbidopa/levodopaand Mirapex . Patient with hypothyroidism. At discharge patient will continue with levothyroxine 25 mcg daily. Patient with GERD. At discharge he may continue with Nexium. Patient with history of paroxysmal atrial fibrillation on chronic anti coagulation therapy. At discharge patient will continue with his medication of Xarelto 20 mg daily. Vital Signs/Physical Exam: Temp Pulse Resp BP Pulse Ox 97.6 F 66 16 157/68 H 98 09/06/19 08:00 09/06/19 08:00 09/06/19 08:00 09/06/19 08:00 09/06/19 08:00 General: Alert, Demented HEENT: Atraumatic Neck: Supple Respiratory: Clear to auscultation bilaterally, Normal air movement Cardiovascular: Normal pulses, Regular rate/rhythm Gastrointestinal: Normal bowel sounds, Soft and benign, Non-distended, No masses, No rebound, No guarding Integumentary: No erythema, No warmth, No cyanosis Neurological: Normal speech, Normal strength at 5/5 x4 extr, Normal tone, Normal affect Laboratory Data at Discharge: WBC 5.3 K/uL (4.3-10.9) 09/06/19 06:06 Hgb 11.6 g/dL (13.6-17.9) L 09/06/19 06:06 Hct 35.2 % (39.6-49.0) L 09/06/19 06:06 Plt Count 170 K/uL (152-406) 09/06/19 06:06 PT 13.4 SECONDS (9.5-12.5) H 09/02/19 11:53 INR 1.14 09/02/19 11:53 APTT 37.3 SECONDS (24.3-36.9) H 09/02/19 11:53 Sodium 140 mmol/L (136-145) 09/06/19 06:06 Potassium 3.9 mmol/L (3.5-5.1) 09/06/19 06:06 BUN 18 mg/dL (7-18) 09/06/19 06:06 Creatinine 0.94 mg/dL (0.55-1.3) 09/06/19 06:06 Glucose 118 mg/dL (74-106) H 09/06/19 06:06 Home Medications: Allopurinol 100 mg PO DAILY 09/05/19 Carbidopa/Levodopa [Rytary ER 61.25 mg-245 mg Cap] 1 each PO QID 09/05/19 Cholecalciferol (Vitamin D3) [Vitamin D3] 125 mcg PO DAILY 09/05/19 Esomeprazole Mag Trihydrate [Nexium] 40 mg PO DAILY 09/05/19 Gabapentin 3 tab PO BID 09/05/19 Insulin Glargine Human [Lantus*] 32 unit SQ DAILY 6PM 09/05/19 Levothyroxine Sodium 25 mcg PO [id number] 09/05/19 Lipase/Protease/Amylase [Zenpep Dr 40,000 Unit Capsule] 2 cap PO QID 09/05/19 Loratadine [Claritin*] 10 mg PO DAILY 09/05/19 Metformin HCl 1,000 mg PO BID 09/05/19 Mirtazapine [Remeron*] 15 mg PO BEDTIME 09/05/19 Niacin (Inositol Niacinate) [Niacin Flush Free 500 mg Cap] 1,000 mg PO DAILY 09/05/19 Pramipexole Di-HCl [Mirapex] 1.5 mg PO TID 09/05/19 Rivaroxaban [Xarelto*] 20 mg PO DAILY 09/05/19 Simvastatin 40 mg PO BEDTIME 09/05/19 Tamsulosin [Flomax*] 0.4 mg PO BEDTIME 09/05/19 Venlafaxine HCl *Xr* [Effexor XR] 150 mg PO DAILY 09/05/19 Aspirin Chewable [Aspirin Chewable*] 81 mg PO DAILY #90 tab.chew 09/06/19 Clopidogrel Bisulfate [Plavix*] 75 mg PO DAILY #30 tablet 09/06/19 New Medications: Aspirin Chewable [Aspirin Chewable*] 81 mg PO DAILY #90 tab.chew Clopidogrel Bisulfate [Plavix*] 75 mg PO DAILY #30 tablet Patient Discharge Instructions: 1. Follow up in 1 week to follow up this hospitalization. 2. Patient was admitted status post heart catheterization to monitor closely as the patient had 2 stents placed. Cardiology performed heart catheterization showing severe CAD. Heart catheterization-Severe mid LAD 95% stenosis status post stent, distal LAD 40% stenosis noted, large dominant RCA proximal 30% stenosis, severe RPDA. Patient was monitored overnight. Patient has remained stable. Case discussed at length with cardiology. Cardiology desires the patient to continue with aspirin 81 mg daily, Plavix 75 mg daily, Xarelto 20 mg daily, Zocor 20 mg daily, and Niacin daily. Patient will need to monitor for any bleeding as the patient will be on triple therapy. Recommend to recheck lab-CBC in 1 week to monitors progress. Recommend follow up with cardiology within 1 week to follow up this hospitalization and continue his care. Cardiology mentioned that in a month aspirin can be discontinued. Further adjustment in medication will come from cardiology. 3. Patient with diabetes mellitus type 2. This has remained stable. At discharge he will continue with his current medications of Lantus 32 units subcu daily and metformin 1000 mg 1 pill twice daily. Recommend to restart metformin 48 hr from the time that the heart catheterization was done. 4. Patient with underlying Parkinson's suspect dementia. At discharge patient will continue with carbidopa/levodopaand Mirapex . 5. Patient with hypothyroidism. At discharge patient will continue with levothyroxine 25 mcg daily. 6. Patient with GERD. At discharge he may continue with Nexium. 7. Patient with history of paroxysmal atrial fibrillation on chronic anti coagulation therapy. At discharge patient will continue with his medication of Xarelto 20 mg daily. Diet: ADA Activity: Fall precautions Time spent managing pt's care (in minutes): 55
[2019-09-06 13:13] VITALS: BP 114/58; TEMP 97.1
--- NOTE | 2019-09-06 23:44 | OP ---
Date of Procedure: 09/05/2019 Surgeon: DONNA MARYAM Procedure Performed: 1.Selective coronary angiogram. 2.Left heart catheterization. 3.PCI of severe mid LAD stenosis using 2.5 x 12 mm Synergy drug-eluting stent. 4.PCI of severe right PDA stenosis more than 90% using 2.5 x 28 mm Synergy drug-eluting stent, post dilated proximally using 3.0 x 12 mm NC balloon. Access: Right radial artery, 6-Khmer, closed with TR band. Indication For Procedure: Unstable angina with positive stress test. Description Of Procedure: After risks, benefits, and alternatives were explained, patient signed inf ormed consent and was brought into the cardiac catheterization laboratory, prepped and draped in usua l sterile fashion. Then, we accessed the right radial artery using the pediatric micropuncture kit. Then, a 6-Khmer slender sheath was placed in and then we took a 5-Khmer [place]view catheter over the J- wire into the aortic root, engaged the left main coronary artery, then the right coronary artery and took standard views and then based on the findings, intervention was planned. Intervention Details: Systemic heparin was given to assure ACT level above 250 and then we took the EBU 3.5 and engaged the left main coronary artery and then we took a short run-through wire across th e severe mid LAD stenosis and pre-dilated using 2.0 x 12 mm balloon and then we took 2.5 x 12 mm Syne rgy drug-eluting stent across the stenosis and deployed successfully with 0% residual stenosis. RAQUEL -3 flow before and after PCI and the lesion length was 8 mm. Then, we moved to intervene the right P DA, which was a long lesion about 25 mm in length. We took a JR4 guide into the aortic root over J-w dontae, engaged the right coronary artery and then we took a short run-through wire across the stenosis into the right PDA. Then, we pre-dilated using a 2.5 x 20 mm balloon and then we took a 2.5 x 28 mm Synergy drug-eluting stent across the stenosis, deployed it successfully and then we took 3.0 x 12 mm noncompliant balloon and dilated the proximal part into the size vessel with good results and RAQUEL-3 flow, 0% residual stenosis. Then, we took all the wires and catheters outside the body and we close d the access with TR band. Findings: 1.Left main, large, normal. 2.LAD moderate size, patent mid LAD stent with distal edge severe 95% stenosis, status post PCI as a byron with 0% residual stenosis. 3.Distal LAD 40% stenosis, to be treated medically. 4.Small left circumflex with no significant disease. 5.Large dominant RCA with proximal 30% stenosis. Severe right PDA branch stenosis which was large, calcified and status post PCI as above with 0% residual stenosis. 6.Severe small branch of the right PDA stenosis, which was left to be treated medically. Conclusions: Severe coronary artery disease as above. Plan: 1.Plavix load 600 mg was given, continue 75 mg daily. Aspirin 81 mg daily and high-dose statin, hig h-intensity agent. 2.Aggressive medical management for coronary artery disease and follow up in the office 4 weeks post discharge. /[email or web address] Voice ID: [id number] Report ID: [id number]
== END 2019-09-06 14:27 | disposition home or self-care (01) ==
LOC: CCL 09:05 → 2ND 11:59 → CCL 09-06 14:27
PROVIDERS: ATTEND Internal Medicine
DX: I25.110 Atherosclerotic heart disease of native coronary artery with unstable angina pectoris (principal); I48.0 Paroxysmal atrial fibrillation; I10 Essential (primary) hypertension; E11.9 Type 2 diabetes mellitus without complications; E03.9 Hypothyroidism, unspecified; K21.9 Gastro-esophageal reflux disease without esophagitis; N40.0 Benign prostatic hyperplasia without lower urinary tract symptoms; G20 Parkinson's disease; F02.80 Dementia in other diseases classified elsewhere, unspecified severity, without behavioral disturbance, psychotic disturbance, mood disturbance, and anxiety; Z11.59 Encounter for screening for other viral diseases; Z87.891 Personal history of nicotine dependence; Z79.01 Long term (current) use of anticoagulants; Z79.4 Long term (current) use of insulin; Z88.0 Allergy status to penicillin; Z88.2 Allergy status to sulfonamides; Z88.8 Allergy status to other drugs, medicaments and biological substances; Z82.49 Family history of ischemic heart disease and other diseases of the circulatory system
CPT/HCPCS: 85025 ×2; 80048 ×2; 36415 ×2; 85610; 82947 ×6; 85347 ×3; 85730; 71046; 93458; U0002; C1893; C1725; C9600; J1644 ×3; J2250; J3010; J7040; C9601; J1815